=== PATIENT | male | born 1955 | race Caucasian/White ===

== ENCOUNTER 2016-11-04 13:29 | Emergency (ER) | payer OTHER ==
[2016-11-04] MEDS ORDERED: Sodium Chloride 0.9% 10 ML Syringe FLUSH PRN (14:06)
[2016-11-04] MEDS ORDERED: Potassium Chloride 20 MEQ Packet PO ONE (14:17)
[2016-11-04 17:24] VITALS: BP 132/78
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
--- NOTE | 2016-11-27 22:29 | ER ---
DATE SEEN: 11/04/2016 PAST MEDICAL HISTORY: Hypertension, previous cardiac stent in 2005, hypertension, dyslipidemia, chronic kidney disease stage I. /[id number] MAT/KIRSTEN ACUNA
== END 2016-11-04 17:10 | disposition home or self-care (01) ==
LOC: FB.ED 13:29
DX: I25.10 Atherosclerotic heart disease of native coronary artery without angina pectoris (principal); I12.9 Hypertensive chronic kidney disease with stage 1 through stage 4 chronic kidney disease, or unspecified chronic kidney disease; N18.1 Chronic kidney disease, stage 1; Z95.5 Presence of coronary angioplasty implant and graft; E66.3 Overweight; Z79.82 Long term (current) use of aspirin; Z79.899 Other long term (current) drug therapy; E78.5 Hyperlipidemia, unspecified; E80.6 Other disorders of bilirubin metabolism; T50.995A Adverse effect of other drugs, medicaments and biological substances, initial encounter; E87.6 Hypokalemia; R79.89 Other specified abnormal findings of blood chemistry
CPT/HCPCS: 36415; 71010; 80053; 84484; 85025; 93005; 99285; A9270; J7050